=== PATIENT | female | born 1990 | race Caucasian/White ===

== ENCOUNTER 2018-08-15 08:41 | Emergency (ER) | payer OTHER ==
[2018-08-15] MEDS ORDERED: BACITRACIN 500 U/GM OIN TOP ONE ×3 (10:00→10:05)
[2018-08-15] MEDS ORDERED: TDAP VACCINE 0.5 ML SUS IM ONE ×2 (10:14→10:18)
[2018-08-15 13:20] VITALS: BP 111/77; PULSE 104; RESP 16; TEMP 97.6; O2SAT 100
== END 2018-08-15 10:20 | disposition home or self-care (01) | DRG 605 ==
LOC: ED 08:41
DX: S01.81XA Laceration without foreign body of other part of head, initial encounter (principal); W45.0XXA Nail entering through skin, initial encounter
CPT/HCPCS: 90471; 90715; 99283; 99284; A6402; A9270-GY